=== PATIENT | female | born 1960 | race Two or more races ===

== ENCOUNTER 2018-04-02 08:17 | Outpatient (CLI) | payer OTHER ==
[~2018-04-02 08:17] MED LIST: AVELOX ABC PAC400 MG; CATAFLAM50 MG; DULERA 100 MCG/13 GM; ELAVIL; FLEXERIL10 MG PO; FORTAMET500 MG; NEURONTIN800 MG; NEXIUM40 M1; PREDNISONE10 MG; PREVACID15 MG; SINGULAIR10 MG; TUSICOF LIQUID120 ML; ZANAFLEX2 M1; ZANTAC300 MG
== END 2018-04-02 10:44 | disposition home or self-care (01) ==
LOC: LAB 08:17
DX: E63.8 Other specified nutritional deficiencies (principal); R74.0 Nonspecific elevation of levels of transaminase and lactic acid dehydrogenase [LDH]; R18.8 Other ascites; B18.8 Other chronic viral hepatitis; K74.69 Other cirrhosis of liver

== ENCOUNTER 2018-04-02 09:33 | Outpatient (CLI) | payer OTHER | END 2018-04-02 09:51 | disposition home or self-care (01) | LOC: RAD 09:33 | DX: Q77.3 Chondrodysplasia punctata (principal); M79.672 Pain in left foot; M79.671 Pain in right foot ==

== ENCOUNTER → 2019-04-26 | Outpatient (CLI) | payer OTHER | END | disposition home or self-care (01) | LOC: MRI 04-25 13:15 | DX: M47.892 Other spondylosis, cervical region (principal); D25.1 Intramural leiomyoma of uterus; N60.21 Fibroadenosis of right breast; N60.22 Fibroadenosis of left breast | CPT/HCPCS: 72141 ==

== ENCOUNTER 2019-06-29 09:06 | Outpatient (CLI) | payer OTHER | END 2019-06-29 09:13 | disposition home or self-care (01) | LOC: SONOGRAMA 09:06 → MAMO-SONO 09:15 | DX: K76.0 Fatty (change of) liver, not elsewhere classified (principal) ==

== ENCOUNTER 2020-02-12 10:08 | Outpatient (CLI) | payer OTHER | END 2020-02-12 16:55 | disposition home or self-care (01) | LOC: SONOGRAMA 10:08 | PROVIDERS: ATTEND Orthopaedic Surgery Orthopaedic Surgery of the Spine | DX: M54.2 Cervicalgia (principal) ==

== ENCOUNTER 2020-02-12 12:00 | Outpatient (CLI) | payer OTHER | END 2020-02-12 15:32 | disposition home or self-care (01) | LOC: LAB 12:00 | DX: E11.65 Type 2 diabetes mellitus with hyperglycemia (principal); E78.2 Mixed hyperlipidemia; I10 Essential (primary) hypertension; K76.0 Fatty (change of) liver, not elsewhere classified ==

== ENCOUNTER 2020-08-13 10:20 | Outpatient (CLI) | payer OTHER | END 2020-08-13 10:35 | disposition home or self-care (01) | LOC: RX STUDY 10:20 | PROVIDERS: ATTEND Internal Medicine | DX: K29.60 Other gastritis without bleeding (principal); K22.0 Achalasia of cardia ==

== ENCOUNTER 2020-10-26 08:06 | Outpatient (CLI) | payer OTHER | END 2020-10-26 08:18 | disposition home or self-care (01) | LOC: SONOGRAMA 08:06 → MAMO-SONO 09:00 | PROVIDERS: ATTEND Internal Medicine Gastroenterology | DX: R10.13 Epigastric pain (principal) ==

== ENCOUNTER 2021-12-31 08:18 | Outpatient (CLI) | payer OTHER | END 2021-12-31 08:34 | disposition home or self-care (01) | LOC: NUCLEAR 08:18 | DX: R14.0 Abdominal distension (gaseous) (principal); Z88.5 Allergy status to narcotic agent | CPT/HCPCS: 78264; A9541 ==

== ENCOUNTER → 2022-06-24 | Outpatient (CLI) | payer OTHER | END | disposition home or self-care (01) | LOC: LAB 10:26 | DX: K29.00 Acute gastritis without bleeding (principal); B96.81 Helicobacter pylori [H. pylori] as the cause of diseases classified elsewhere ==

== ENCOUNTER 2024-09-10 07:54 | Outpatient (CLI) | payer OTHER | END 2024-09-10 08:02 | disposition home or self-care (01) | LOC: MAMO-SONO 07:54 | DX: R10.13 Epigastric pain (principal); R05.9 Cough, unspecified; R06.02 Shortness of breath; N60.21 Fibroadenosis of right breast; N60.22 Fibroadenosis of left breast; I34.0 Nonrheumatic mitral (valve) insufficiency; I68.2 Cerebral arteritis in other diseases classified elsewhere; E78.5 Hyperlipidemia, unspecified; E11.69 Type 2 diabetes mellitus with other specified complication; E11.42 Type 2 diabetes mellitus with diabetic polyneuropathy; J45.20 Mild intermittent asthma, uncomplicated; H35.363 Drusen (degenerative) of macula, bilateral; H25.13 Age-related nuclear cataract, bilateral; K31.84 Gastroparesis; K21.9 Gastro-esophageal reflux disease without esophagitis; K76.0 Fatty (change of) liver, not elsewhere classified; Z86.0100 Personal history of colon polyps, unspecified; K57.30 Diverticulosis of large intestine without perforation or abscess without bleeding; K64.8 Other hemorrhoids; D57.3 Sickle-cell trait; G47.00 Insomnia, unspecified; M85.89 Other specified disorders of bone density and structure, multiple sites; M54.2 Cervicalgia; E55.9 Vitamin D deficiency, unspecified; E53.8 Deficiency of other specified B group vitamins; Z68.29 Body mass index [BMI] 29.0-29.9, adult; Z12.31 Encounter for screening mammogram for malignant neoplasm of breast ==